=== PATIENT | male | born 2000 | race Caucasian/White ===

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

== ENCOUNTER 2023-01-03 11:15 | Outpatient (RCR) | payer OTHER ==
[~2023-01-03 11:15] MED LIST: BACTRIM DS 8001 TAB PO
== END 2023-01-07 14:14 | disposition home or self-care (01) ==
LOC: PT.GENESIS 11:15
DX: S82.201D Unspecified fracture of shaft of right tibia, subsequent encounter for closed fracture with routine healing (principal); S82.401D Unspecified fracture of shaft of right fibula, subsequent encounter for closed fracture with routine healing; X58.XXXD Exposure to other specified factors, subsequent encounter

== ENCOUNTER 2023-01-19 19:31 | Emergency (ER) | payer OTHER ==
[~2023-01-19] VITALS: Ht 167.6 cm; Wt 70.5 kg
[2023-01-19 19:46] VITALS: TEMP 98.5
[2023-01-19 21:00] VITALS: BP 119/69; PULSE 84
== END 2023-01-19 21:00 | disposition home or self-care (01) ==
LOC: COL.ER 19:31
DX: S01.112A Laceration without foreign body of left eyelid and periocular area, initial encounter (principal); Y04.8XXA Assault by other bodily force, initial encounter